=== PATIENT | female | born 1935 | race Caucasian/White ===

== ENCOUNTER 2022-12-03 06:20 | Inpatient (IN) | payer OTHER, MEDICAID ==
[~2022-12-03] VITALS: Ht 157.5 cm; Wt 50.8 kg
--- NOTE | 2022-12-03 06:25 | NUR ---
Waqar cardona in [facility] - 12/03/22 at 0627 by MELVIN PT TAKEN TO BED 4
--- NOTE | 2022-12-03 06:27 | NUR ---
PT ANN BLS. TAKEN TO BED 3
[2022-12-03 06:30] VITALS: BP 116/75
--- NOTE | 2022-12-03 06:34 | NUR ---
Dr. Lucia examining patient.
[2022-12-03] MEDS ORDERED: ALUMINUM HYD/MAG/SIMETHICONE 30 ML UDC PO ONE (06:40)
[2022-12-03] MEDS ORDERED: FAMOTIDINE 20 MG TAB PO ONE (06:40)
--- NOTE | 2022-12-03 07:09 | NUR ---
X-Ray at bedside.
--- NOTE | 2022-12-03 07:30 | NUR ---
87 Y/O FEMALE BIBA FROM [facility] C/O GEN ABD PAIN CRAMPING AND BURNING X1 WEEK. DENIES NVD. RESPIRATIONS EVEN AND UNLABORED, BOWEL SOUNDS WNL. PMH: HTN, HYPOTHYROID,PAROXYSMAL A FIB Addendum: 12/03/22 at 1055 by MNURBMD HX LEFT MASTECTOMY
[2022-12-03 07:40] LABS: BASOPHILS % (AUTO) 0.7 % (0.0-2.0); EOSINOPHILS # (AUTO) 0.2 K/uL (0-0.4); EOSINOPHILS % (AUTO) 2.7 % (0.0-4.0); HEMATOCRIT 37.5 % (36-48); HEMOGLOBIN 11.7 g/dL (12.0-16.0); LYMPHOCYTES % (AUTO) 17.4 % (20.5-51.1); MEAN CORPUSCULAR HEMOGLOBIN 27 pg (27-31); MEAN CORPUSCULAR HGB CONC 31 g/dL (33-37); MEAN CORPUSCULAR VOLUME 87.8 fL (80-94); MONOCYTES # (AUTO) 0.7 K/uL (0.8-1.0); MONOCYTES % (AUTO) 11.8 % (1.7-9.3); NEUTROPHILS # (AUTO) 3.9 K/uL (1.8-7.7); NEUTROPHILS % (AUTO) 67.4 % (42.2-75.2); PLATELET COUNT (AUTO) 207 K/uL (140-450); RED BLOOD CELL COUNT(AUTO) 4.27 MIL/uL (4.20-5.40); RED CELL DISTRIBUTION WIDTH 18.6 % (11.6-13.7); WHITE BLOOD COUNT (AUTO) 5.8 K/uL (4.8-10.8)
--- NOTE | 2022-12-03 08:57 | NUR ---
PER ERMD OK FOR PT TO EAT, GIVEN SANDWICH AND WARM TEA
[2022-12-03 09:19] LABS: ALBUMIN 3.5 g/dL (3.4-5.0); ANION GAP 11.3 (8-16); ASPARTATE AMINOTRANSFERASE 40 U/L (15-37); CARBON DIOXIDE 26.8 mmol/L (21-32); CHLORIDE 103 mmol/L (98-107); CREATININE 1.1 mg/dL (0.6-1.3); GLUCOSE 79 mg/dL (74-106); LIPASE 436 U/L (73-393); POTASSIUM 4.1 mmol/L (3.5-5.1); SODIUM SERUM 137 mmol/L (136-145); TOTAL BILIRUBIN 0.8 mg/dL (0.0-1.0); UREA NITROGEN, BLOOD 28 mg/dL (7-18)
[2022-12-03] MEDS ORDERED: METOPROLOL 5 MG/5 ML VIAL IVP ONE (09:40)
[2022-12-03] MEDS ORDERED: FUROSEMIDE 40 MG/4 ML VIAL IVP ONE (10:10)
[2022-12-03] MEDS ORDERED: POTA10TA81 PO (10:32)
[2022-12-03] MEDS ORDERED: LEVO0.0512 PO (10:32)
[2022-12-03] MEDS ORDERED: RIVA15TA1 PO (10:32)
[2022-12-03] MEDS ORDERED: ALPR0.2518 PO (10:32)
[2022-12-03] MEDS ORDERED: DULO60EC85 PO (10:32)
[2022-12-03] MEDS ORDERED: METO25TA PO (10:32)
--- NOTE | 2022-12-03 10:35 | NUR ---
NOTED HR 120S AT THIS TIME, BP 109/85, RECEIVED ORDERS
--- NOTE | 2022-12-03 10:37 | NUR ---
ATTEMPTED TO CALL SON, ANTONIO , UNABLE TO CONTACT
[2022-12-03] MEDS ORDERED: METOPROLOL 25 MG TAB PO ONE (10:40)
--- NOTE | 2022-12-03 10:42 | NUR ---
HR NOW 105 W/O INTERVENTIONS, ERMD STATED TO HOLD PO METOPROLOL AT THIS TIME
--- NOTE | 2022-12-03 11:17 | NUR ---
CALLED CHERYL ANN, RECEIVED NUMBER FOR PT FAMILY JIMENEZ [phone]
[2022-12-03] MEDS ORDERED: HYDROcodone/APAP 7.5/325 MG 1 TAB PO PRN (11:40)
[2022-12-03] MEDS ORDERED: POTASSIUM CHLORIDE 10 MEQ TABER PO PRN (11:40)
[2022-12-03] MEDS ORDERED: ZOLPIDEM 5 MG TAB PO PRN (11:40)
[2022-12-03] MEDS ORDERED: guaiFENesin DM 200/20 MG-10 ML 10 ML UDC PO PRN (11:40)
[2022-12-03] MEDS ORDERED: ONDANSETRON 4 MG/2 ML VIAL IM/IVP PRN (11:40)
[2022-12-03] MEDS ORDERED: DOCUSATE SODIUM 100 MG GELCAP PO PRN (11:40)
[2022-12-03] MEDS ORDERED: ACETAMINOPHEN 325 MG TAB PO PRN (11:40)
--- NOTE | 2022-12-03 11:43 | NUR ---
DR ANDERSON AT BEDSIDE FOR EVAL
[2022-12-03] MEDS: METOPROLOL 50 MG TAB PO SCH ×2 (12:07→21:25)
--- NOTE | 2022-12-03 12:07 | NUR ---
PER DR ANDERSON, HOLD PARAMETERS FOR METOPROLOL SYSTOLIC 105 AND DIASTOLIC 60
--- NOTE | 2022-12-03 12:08 | NUR ---
PT AMBULATED TO BATHROOM WITH ASSISTANCE
--- NOTE | 2022-12-03 12:34 | NUR ---
Patient will be admitted to care of DR KRISTINE ANDERSON. Admited to TELEMETRY. Will go to room 108B. Belongings list completed. Report to BALAJI BARBER.
[2022-12-03 13:11] LABS: FREE T4 (FREE THYROXINE) 1.23 ng/dL (0.76-1.46); PHOSPHORUS 3.4 mg/dL (2.5-4.9); THYROID STIMULATING HORMONE 4.73 uIU/mL (0.34-3.74)
[2022-12-03 13:20] LABS: CHOL/HDL RATIO 3.4 (1-4.5)
--- NOTE | 2022-12-03 15:10 | NUR ---
admit the patient from the emergency room aox4 ambulatory . admitting diagnosis of atrial fibrillation . will continue to monitor
[2022-12-03 16:00] VITALS: BP 124/65
--- NOTE | 2022-12-03 17:06 | NUR ---
PATIENT HAS BEEN SCREENED AND CATEGORIZED MODERATE NUTRITION RISK. PATIENT WILL BE SEEN WITHIN 3-5 DAYS OF ADMISSION. REVIEWED BY KELLY WANG RD
[2022-12-03 18:14] LABS: PROTHROMBIN TIME 11.7 secs (10.8-13.4)
--- NOTE | 2022-12-03 18:40 | NUR ---
will endorse to night court magistrate rn for continuity of care
[2022-12-03 19:19] LABS: APPEARANCE,URINE CLEAR (CLEAR); BILIRUBIN,URINE NEGATIVE (NEGATIVE); BLOOD, URINE TRACE-I (NEGATIVE); COLOR,URINE YELLOW (YELLOW); LEUKOCYTE ESTERASE ,URINE NEGATIVE (NEGATIVE); NITRITE, URINE POSITIVE (NEGATIVE); UGLUCOSE NEGATIVE (NEGATIVE)
--- NOTE | 2022-12-03 19:20 | NUR ---
RECD. REPORT FROM SUNIL LOMELI. PATIENT RESTING IN BED, AWAKE, A/OX2-3. CONVERSANT AND PLEASANT. RESPIRATION EVEN AND UNLABORED. IV SALINE LOCK AT THE RIGHT HAND G22, PATENT AND INTACT. USES THE BSC WITH ASSISTANCE. DENIES PAIN 0/10.
[2022-12-03 19:36] LABS: WBC,URINE 0-5 /HPF (0-5)
[2022-12-03 20:00] VITALS: BP 123/96
--- NOTE | 2022-12-03 21:00 | NUR ---
ALWAYS TRYING TO GET OUT OF BED, WITHOUT CALLING THE NURSE. REORIENTED TO HOSPITAL SETTING. INSTRUCTED TO CALL NURSE WHEN EVER GETTING OUT OF BED. NEEDS REINFORCEMENT.
--- NOTE | 2022-12-03 21:30 | NUR ---
SITTING ON BED, CONFUSED. REORIENTED TO HOSPITAL SETTING.
[2022-12-03] MEDS: ALPRAZolam 0.25 MG TAB PO PRN (22:56)
--- NOTE | 2022-12-03 22:56 | NUR ---
WITH AGITATION, MEDICATED WITH XANAX PER MD ORDER.
--- NOTE | 2022-12-03 23:00 | NUR ---
EATING HER UNFINISHED DINNER TRAY WHILE WATCHING TV.
[2022-12-04] VITALS: BP 115/81
--- NOTE | 2022-12-04 | NUR ---
ASSISTED TO REPOSITIONED SELF IN BED, KEPT WARM WITH BLANKETS AND INSTRUCTED TO GO TO SLEEP.
--- NOTE | 2022-12-04 01:00 | NUR ---
SLEEPING ON HER LEFT SIDE, RESPIRATION EVEN AND UNLABORED.
--- NOTE | 2022-12-04 02:20 | NUR ---
CHECKED PATIENT, TRYING TO GET OUT OF BED. CONFUSED, REORIENTED TO HOSPITAL SETTING. MADE COMFORTABLE WITH BLANKETS AND ADVISED TO GO BACK TO SLEEP.
--- NOTE | 2022-12-04 03:00 | NUR ---
SLEEPING COMFORTABLY IN BED. RESPIRATION EVEN AND UNLABORED.
[2022-12-04 04:00] VITALS: BP 117/81
--- NOTE | 2022-12-04 04:30 | NUR ---
AWAKE SITTING ON BED, CONFUSED. THINKS SHE IS IN [place]. REORIENTED TO HOSPITAL SETTING.
--- NOTE | 2022-12-04 06:00 | NUR ---
AWAKE SITTING ON BED, REORIENTATION TO HOSPITAL SETTING DONE FREQUENTLY, WITH CONFUSION.
[2022-12-04] MEDS: LEVOTHYROXINE 0.05 MG TAB PO SCH (06:40)
--- NOTE | 2022-12-04 06:48 | NUR ---
SITTING ON BED, WATCHING TV. SAFETY MAINTAINED.
[2022-12-04 07:01] LABS: ANION GAP 11.8 (8-16); BASOPHILS % (AUTO) 0.8 % (0.0-2.0); CARBON DIOXIDE 28.3 mmol/L (21-32); CHLORIDE 103 mmol/L (98-107); CREATININE 1.2 mg/dL (0.6-1.3); EOSINOPHILS # (AUTO) 0.1 K/uL (0-0.4); EOSINOPHILS % (AUTO) 2.4 % (0.0-4.0); GLUCOSE 73 mg/dL (74-106); HEMATOCRIT 38.5 % (36-48); LYMPHOCYTES # (AUTO) 0.9 K/uL (2.5-16.5); LYMPHOCYTES % (AUTO) 16.2 % (20.5-51.1); MEAN CORPUSCULAR HEMOGLOBIN 27 pg (27-31); MEAN CORPUSCULAR HGB CONC 31 g/dL (33-37); MEAN CORPUSCULAR VOLUME 87.5 fL (80-94); MONOCYTES # (AUTO) 0.5 K/uL (0.8-1.0); MONOCYTES % (AUTO) 8.6 % (1.7-9.3); NEUTROPHILS # (AUTO) 4.1 K/uL (1.8-7.7); PLATELET COUNT (AUTO) 139 K/uL (140-450); POTASSIUM 4.1 mmol/L (3.5-5.1); RED CELL DISTRIBUTION WIDTH 18.9 % (11.6-13.7); SODIUM SERUM 139 mmol/L (136-145); UREA NITROGEN, BLOOD 33 mg/dL (7-18); WHITE BLOOD COUNT (AUTO) 5.7 K/uL (4.8-10.8)
--- NOTE | 2022-12-04 07:15 | NUR ---
RECEIVED REPORT FROM SPECIAL PROJECTS COORDINATOR NURSE FOR CONTINUITY OF CARE. PT STABLE AT THIS TIME.
--- NOTE | 2022-12-04 07:25 | NUR ---
ENDORSED TO AM NURSE FOR CONTINUITY OF CARE.
[2022-12-04 08:00] VITALS: BP 113/92
[2022-12-04] MEDS: PANTOPRAZOLE 40 MG TABEC PO SCH (09:03)
[2022-12-04] MEDS: METOPROLOL 50 MG TAB PO SCH ×3 (09:03→21:09)
[2022-12-04] MEDS: RIVAROXABAN 10 MG TAB PO SCH (09:15)
[2022-12-04] MEDS ORDERED: DIGOXIN 0.25 MG/ML AMP IV SCH (11:50)
[2022-12-04 12:00] VITALS: BP 112/95
[2022-12-04 16:00] VITALS: BP 169/91
[2022-12-04] MEDS: FUROSEMIDE 20 MG/2 ML VIAL IVP SCH (17:34)
[2022-12-04] MEDS ORDERED: DIGOXIN 0.25 MG TAB PO SCH (18:00)
--- NOTE | 2022-12-04 19:15 | NUR ---
ENDORSED PT TO ORTHOTICS PROSTHETICS ASSISTANT FOR CONTINUITY OF CARE. PT STABLE AT THIS TIME.
[2022-12-04 20:00] VITALS: BP 162/94
--- NOTE | 2022-12-04 20:00 | NUR ---
RECEIVED REPORT FROM MARGOTH BARBER FOR CONTINUITY OF CARE. PATIENT AWAKE, A/O X2, RESTING IN BED.ON ROOM AIR,. RESPIRATION EVEN AND UNLABORED.NO S/SX OF DISTRESS. IV SALINE LOCK AT THE RIGHT HAND G22, PATENT AND INTACT.. DENIES PAIN AT THIS MOMENT.ALL PRECAUTIONS IN PLACE .CALL LIGHT WITHIN REACH. WILL CONTINUE TO MONITOR.
--- NOTE | 2022-12-04 21:00 | NUR ---
SCHEDULED MEDICATION GIVEN. PT TOLERATED WELL. NO ACUTE DRUG REACTION NOTED.ALL PRECAUTIONS IN PLACE.CALL LIGHT WITHIN REACH. WILL CONTINUE TO MONITOR.
[2022-12-04] MEDS: ALPRAZolam 0.25 MG TAB PO PRN (21:10)
--- NOTE | 2022-12-04 23:45 | NUR ---
PT ASSISTED TO BEDSIDE COMMODE. PT NO COMPLAINS OF PAIN. BREATHING EVEN AND UNLABORED.WILL CONTINUE TO MONITOR.
[2022-12-05] VITALS: BP 139/92
[2022-12-05] MEDS ORDERED: DIGOXIN 0.25 MG TAB PO SCH
[2022-12-05 04:00] VITALS: BP 113/66
--- NOTE | 2022-12-05 04:19 | NUR ---
PT ASLEEP. NO S/SX OF DISTRESS NOTED. BREATHING EVEN AND UNLABORED. CALL LIGHT WITHIN REACH.WILL CONTINUE TO MONITOR.
[2022-12-05] MEDS: METOPROLOL 50 MG TAB PO SCH ×2 (05:00→13:12)
[2022-12-05] MEDS: LEVOTHYROXINE 0.05 MG TAB PO SCH (06:22)
[2022-12-05 06:43] LABS: BASOPHILS % (AUTO) 0.7 % (0.0-2.0); EOSINOPHILS # (AUTO) 0.1 K/uL (0-0.4); EOSINOPHILS % (AUTO) 2.8 % (0.0-4.0); HEMATOCRIT 38.4 % (36-48); LYMPHOCYTES # (AUTO) 0.6 K/uL (2.5-16.5); LYMPHOCYTES % (AUTO) 13.9 % (20.5-51.1); MEAN CORPUSCULAR HEMOGLOBIN 27 pg (27-31); MEAN CORPUSCULAR HGB CONC 31 g/dL (33-37); MONOCYTES # (AUTO) 0.5 K/uL (0.8-1.0); MONOCYTES % (AUTO) 11.4 % (1.7-9.3); NEUTROPHILS # (AUTO) 3.2 K/uL (1.8-7.7); NEUTROPHILS % (AUTO) 71.2 % (42.2-75.2); PLATELET COUNT (AUTO) 188 K/uL (140-450); RED BLOOD CELL COUNT(AUTO) 4.42 MIL/uL (4.20-5.40); RED CELL DISTRIBUTION WIDTH 19.2 % (11.6-13.7); WHITE BLOOD COUNT (AUTO) 4.5 K/uL (4.8-10.8)
[2022-12-05 06:51] LABS: ANION GAP 13.2 (8-16); CARBON DIOXIDE 28.4 mmol/L (21-32); CHLORIDE 103 mmol/L (98-107); GLUCOSE 65 mg/dL (74-106); POTASSIUM 3.6 mmol/L (3.5-5.1); SODIUM SERUM 141 mmol/L (136-145); UREA NITROGEN, BLOOD 34 mg/dL (7-18)
--- NOTE | 2022-12-05 07:10 | NUR ---
RECEIVED REPORT FROM SIGNAL WORKER NURSE FOR CONTINUITY OF CARE. PT STABLE AT THIS TIME.
[2022-12-05 08:00] VITALS: BP 133/72
[2022-12-05] MEDS ORDERED: FUROSEMIDE 20 MG/2 ML VIAL IVP SCH (09:00)
[2022-12-05] MEDS: PANTOPRAZOLE 40 MG TABEC PO SCH (09:09)
[2022-12-05] MEDS: FUROSEMIDE 20 MG/2 ML VIAL IVP SCH ×2 (09:10→17:15)
[2022-12-05] MEDS: RIVAROXABAN 10 MG TAB PO SCH (09:16)
[2022-12-05 12:00] VITALS: BP 149/88
[2022-12-05 16:00] VITALS: BP 127/88
--- NOTE | 2022-12-05 16:03 | NUR ---
DC PLANNING ASSESSMENT COMPLETE SEE ASSESSMENT FOR DETAILS LAYLA REPORTS DC PLAN IS FOR PT TO RETURN TO MR WHEN MEDICALLY STABLE. ATTEMPTED TO OUTREACH TO PTS YARITZA MERCADO, HOWEVER, UNSUCCESSFUL. Addendum: 12/05/22 at 1604 by Serge Henry SS Amended: Links added.
--- NOTE | 2022-12-05 19:05 | NUR ---
ENDORSED PT TO MANAGER OF SECURITY FOR CONTINUITY OF CARE. PT STABLE AT THIS TIME.
[2022-12-05 20:00] VITALS: BP 126/104
--- NOTE | 2022-12-05 21:21 | NUR ---
PT ASSISTED TO BEDSIDE COMMODE. PT NO COMPLAINS OF PAIN. BREATHING EVEN AND UNLABORED.WILL CONTINUE TO MONITOR.
[2022-12-06] VITALS: BP 144/76
[2022-12-06] MEDS: ALPRAZolam 0.25 MG TAB PO PRN (02:15)
--- NOTE | 2022-12-06 02:42 | NUR ---
PT ASLEEP. VISIBLE CHEST RISE AND FALL NOTED. NO S/SX OF DISTRESS. ALL PRECAUTIONS IN PLACE. CALL LIGHT WITHIN REACH. WILL CONTINUE TO MONITOR.
[2022-12-06 04:00] VITALS: BP 139/74
[2022-12-06] MEDS: LEVOTHYROXINE 0.05 MG TAB PO SCH (06:02)
[2022-12-06 06:49] LABS: BASOPHILS % (AUTO) 0.5 % (0.0-2.0); EOSINOPHILS # (AUTO) 0.1 K/uL (0-0.4); EOSINOPHILS % (AUTO) 2.4 % (0.0-4.0); HEMOGLOBIN 12.7 g/dL (12.0-16.0); LYMPHOCYTES # (AUTO) 0.7 K/uL (2.5-16.5); LYMPHOCYTES % (AUTO) 12.3 % (20.5-51.1); MEAN CORPUSCULAR HEMOGLOBIN 27 pg (27-31); MEAN CORPUSCULAR HGB CONC 32 g/dL (33-37); MEAN CORPUSCULAR VOLUME 86.3 fL (80-94); MONOCYTES # (AUTO) 0.5 K/uL (0.8-1.0); MONOCYTES % (AUTO) 9.1 % (1.7-9.3); NEUTROPHILS # (AUTO) 4.2 K/uL (1.8-7.7); NEUTROPHILS % (AUTO) 75.7 % (42.2-75.2); PLATELET COUNT (AUTO) 185 K/uL (140-450); RED BLOOD CELL COUNT(AUTO) 4.64 MIL/uL (4.20-5.40); RED CELL DISTRIBUTION WIDTH 18.8 % (11.6-13.7); WHITE BLOOD COUNT (AUTO) 5.6 K/uL (4.8-10.8)
--- NOTE | 2022-12-06 06:51 | NUR ---
PT IS STABLE. NO ACUTE EVENTS THROUGHOUT THE NIGHT.NO S/SX OF DISTRESS AT THIS MOMENT.ALL NEEDS ATTENDED. ALL PRECAUTIONS IN PLACE. CALL LIGHT WITHIN REACH.WILL ENDORSE TO DAY SHIFT NURSE.
[2022-12-06 08:00] VITALS: BP 136/76
--- NOTE | 2022-12-06 08:00 | NUR ---
Patient's Plan of Care was discussed and reviewed with CHEESE SUPERVISOR:
[2022-12-06] MEDS ORDERED: FUROSEMIDE 40 MG TAB PO SCH (09:00)
[2022-12-06] MEDS ORDERED: lisinopriL 5 MG TAB PO SCH (09:00)
[2022-12-06] MEDS ORDERED: METOPROLOL SUCCINATE 50 MG TABER PO SCH (09:00)
[2022-12-06] MEDS: RIVAROXABAN 10 MG TAB PO SCH (09:21)
[2022-12-06] MEDS: PANTOPRAZOLE 40 MG TABEC PO SCH (09:23)
--- NOTE | 2022-12-06 09:29 | NUR ---
ADMINISTERED ALL SCHEDULED MEDICATION. PT TOLERATING WELL.
[2022-12-06 09:51] LABS: ANION GAP 10.2 (8-16); CARBON DIOXIDE 30.8 mmol/L (21-32); CHLORIDE 103 mmol/L (98-107); CREATININE 0.9 mg/dL (0.6-1.3); GLUCOSE 74 mg/dL (74-106); SODIUM SERUM 141 mmol/L (136-145); UREA NITROGEN, BLOOD 22 mg/dL (7-18)
[2022-12-06] MEDS ORDERED: METO50TE2 PO (10:43)
[2022-12-06] MEDS ORDERED: FURO40TA9 PO (10:43)
[2022-12-06] MEDS ORDERED: LISI5TAB24 PO (10:43)
[2022-12-06] MEDS ORDERED: POTASSIUM CHLORIDE 40 MEQ, LIDOCAINE 1% 25 MG in NACL 0.9% 250 ML IV ONE (11:30)
[2022-12-06 12:00] VITALS: BP 129/78
[2022-12-06] MEDS ORDERED: POTASSIUM CHLORIDE 10 MEQ TABER PO SCH (13:25)
--- NOTE | 2022-12-06 14:32 | NUR ---
DISCHARGE PACKET DISCUSSED WITH PT. NAME BAND AND IV REMOVED. PT BELONGINGS GATHERED AND TAKEN. PT TAKEN VIA WHEELCHAIR TO [facility] LOBBY. [facility] TRANSPORT STAFF ASSISTED PT GETTING IN VEHICLE. PT IN STABLE CONDITION. DC TO [facility].
== END 2022-12-06 15:36 | disposition home or self-care (01) | DRG 291 ==
LOC: MED 06:20 → MTU 11:05
PROVIDERS: ADMIT Family Medicine; ATTEND Family Medicine
DX: I13.0 Hypertensive heart and chronic kidney disease with heart failure and stage 1 through stage 4 chronic kidney disease, or unspecified chronic kidney disease (principal); I50.43 Acute on chronic combined systolic (congestive) and diastolic (congestive) heart failure; J18.9 Pneumonia, unspecified organism; I48.20 Chronic atrial fibrillation, unspecified; D63.8 Anemia in other chronic diseases classified elsewhere; R74.01 Elevation of levels of liver transaminase levels; I36.1 Nonrheumatic tricuspid (valve) insufficiency; I34.0 Nonrheumatic mitral (valve) insufficiency; E03.9 Hypothyroidism, unspecified; N18.9 Chronic kidney disease, unspecified; I35.1 Nonrheumatic aortic (valve) insufficiency; Z20.822 Contact with and (suspected) exposure to COVID-19; Z79.01 Long term (current) use of anticoagulants; Z88.1 Allergy status to other antibiotic agents; Z88.8 Allergy status to other drugs, medicaments and biological substances; Z79.899 Other long term (current) drug therapy
CPT/HCPCS: 36415; 74022; 80048; 80053; 81001; 82150; 83036; 83690; 83735; 83880; 84100; 84436; 84439; 84443; 84479; 84484; 85025; 85610; 85730; 87086; 93005; 96374; 96375; 97116; 97163-GP; 99285; J0696; J1160; J1940; J2001; J3480; J3490; J7030; J7060; Q0092